=== PATIENT | male | born 1995 | race African-American/Black ===

== ENCOUNTER 2018-07-11 12:09 | Emergency (ER) | payer BC ==
[~2018-07-11] VITALS: Ht 177.8 cm; Wt 86.2 kg
[2018-07-11] MEDS ORDERED: ZPAK PO (12:28)
[2018-07-11 15:27] VITALS: BP 128/70
== END 2018-07-11 15:52 | disposition home or self-care (01) ==
LOC: ER 12:09
DX: J02.9 Acute pharyngitis, unspecified (principal)